=== PATIENT | female | born 1955 | race Caucasian/White ===

== ENCOUNTER 2018-05-24 12:25 | Day surgery (SDC) | payer MEDICARE, MEDICAID ==
[~2018-05-24] VITALS: Ht 157.5 cm; Wt 46.6 kg
[~2018-05-24 12:25] MED LIST: BUPIVACAINE/PF-EPI 0.5% 1:200K ONE; FUROSEMIDE 20 MG/2 ML ONE; NEOMY/POLYMYXIN B GU IRR. 1 ML IRRIG ONE
[2018-05-24] MEDS ORDERED: LACTATED RINGERS 1,000 ML IV SCH ×2 (13:07→18:32)
[2018-05-24 13:16] VITALS: BP 112/78
[2018-05-24] MEDS ORDERED: LIDOCAINE-MPF 1%, 2ML INFIL ONE (13:30)
[2018-05-24] MEDS ORDERED: CLON1TAB11 PO (13:36)
[2018-05-24] MEDS ORDERED: GABA300C10 PO (13:36)
[2018-05-24] MEDS ORDERED: OMEGA 3 PO (13:36)
[2018-05-24] MEDS ORDERED: ALEN70TA5 PO (13:36)
[2018-05-24] MEDS ORDERED: RANI150C PO (13:36)
[2018-05-24] MEDS ORDERED: [UNRECOGNIZED DRUG - OTHER] INH (13:36)
[2018-05-24] MEDS ORDERED: MELO15TA24 PO (13:36)
[2018-05-24] MEDS ORDERED: VITAMIN D PO (13:36)
[2018-05-24] MEDS ORDERED: TIZA2CAP PO (13:36)
[2018-05-24] MEDS ORDERED: TIOT18CA INH (13:36)
[2018-05-24] MEDS ORDERED: FLUT1DIS3 INH (13:36)
[2018-05-24] MEDS ORDERED: ALBU8.5H8 INH (13:36)
[2018-05-24] MEDS ORDERED: TOPI50TA8 PO (13:36)
[2018-05-24] MEDS ORDERED: DIVA-61 PO (13:36)
[2018-05-24] MEDS ORDERED: ATOR20TA9 PO (13:36)
[2018-05-24] MEDS ORDERED: VITAMIN B12 PO (13:36)
[2018-05-24] MEDS ORDERED: NAPR220C2 PO (13:36)
[2018-05-24] MEDS ORDERED: MIDAZOLAM 1 MG/ML, 2ML ONE (15:39)
[2018-05-24] MEDS ORDERED: FENTANYL PF 250 MCG/5ML ONE (15:39)
[2018-05-24] MEDS ORDERED: SUCCINYLCHOLINE 20 MG/ML, 10ML ONE (15:54)
[2018-05-24] MEDS ORDERED: ONDANSETRON 2MG/ML, 2ML ONE (15:54)
[2018-05-24] MEDS ORDERED: DEXAMETHASONE 4 MG/ML, 1ML ONE (15:54)
[2018-05-24] MEDS ORDERED: CEFAZOLIN 1,000 MG ONE (15:54)
[2018-05-24] MEDS ORDERED: ROCURONIUM 10MG/ML,5ML ONE (15:54)
[2018-05-24] MEDS ORDERED: PROPOFOL 10 MG/ML, 20ML ONE (15:54)
[2018-05-24] MEDS ORDERED: ALBUTEROL SULFATE 2.5 MG/3 ML NPPB PRN (16:30)
[2018-05-24] MEDS ORDERED: MEPERIDINE/PF 25MG/0.5ML IVPush PRN (16:30)
[2018-05-24] MEDS ORDERED: LABETALOL 5MG/ML, 20ML IV PRN (16:30)
[2018-05-24] MEDS ORDERED: OXYcodone 5 MG/5 ML ORAL.SOL UDC PO PRN (16:30)
[2018-05-24] MEDS ORDERED: PROMETHAZINE 25 MG/ML, 1ML IV PRN (16:30)
[2018-05-24] MEDS ORDERED: METOCLOPRAMIDE 5 MG/ML, 2ML IV PRN (16:30)
[2018-05-24] MEDS ORDERED: ONDANSETRON 2MG/ML, 2ML IVPush PRN (16:30)
[2018-05-24] MEDS ORDERED: KETOROLAC 30 MG/1 ML IV PRN ×2 (16:30→18:30)
[2018-05-24] MEDS ORDERED: hydrALAzine 20 MG/ML, 1ML IV PRN (16:30)
[2018-05-24] MEDS ORDERED: HYDROmorphone 2 MG/ML, 1ML ONE (17:09)
[2018-05-24] MEDS ORDERED: FENTANYL PF 100 MCG/2ML ONE (17:09)
[2018-05-24] MEDS: FENTANYL PF 100 MCG/2ML IV PRN ×2 (17:12→17:19)
[2018-05-24] MEDS: HYDROmorphone 1 MG/ML, 1ML IV PRN ×2 (17:13→17:30)
[2018-05-24] MEDS ORDERED: ALBUTEROL SULFATE 2.5 MG/3 ML NPPB SCH (18:30)
[2018-05-24] MEDS ORDERED: OXYcodone/APAP 5/325MG TABLET PO PRN (18:30)
[2018-05-24] MEDS ORDERED: HYDROmorphone 1 MG/ML, 1ML IV PRN (18:30)
[2018-05-24] MEDS ORDERED: ONDANSETRON 2MG/ML, 2ML IV PRN (18:30)
[2018-05-24] MEDS ORDERED: IBUPROFEN 600 MG TABLET PO PRN (18:30)
[2018-05-24] MEDS ORDERED: HYDROcodone/APAP 5/325 TABLET PO PRN (19:00)
[2018-05-24] MEDS ORDERED: DIVALPROEX 500 MG TAB.ER.24H PO SCH (21:00)
[2018-05-24] MEDS ORDERED: IPRATROPIUM 0.5 MG/2.5 ML INHA NPPB SCH (21:00)
[2018-05-24] MEDS ORDERED: TIZANIDINE 2MG TABLET PO SCH (21:00)
[2018-05-24] MEDS ORDERED: ATORVASTATIN 20 MG TABLET PO SCH (21:00)
[2018-05-24] MEDS ORDERED: GABAPENTIN 300 MG CAPSULE PO SCH (21:00)
[2018-05-24] MEDS ORDERED: FAMOTIDINE 20 MG TABLET PO SCH (21:00)
[2018-05-24] MEDS ORDERED: BUDESONIDE 0.5 MG/2 ML INHA NPPB SCH (21:00)
[2018-05-25] MEDS ORDERED: TOPIRAMATE 25 MG TABLET PO SCH (09:00)
[2018-05-31] MEDS ORDERED: ALENDRONATE 70 MG TABLET PO SCH (06:30)
== END 2018-05-24 21:35 | disposition home or self-care (01) ==
LOC: OUT 12:25 → 4NOR 18:05 → OUT 21:35
PROVIDERS: ATTEND Obstetrics & Gynecology Female Pelvic Medicine and Reconstructive Surgery
DX: N81.89 Other female genital prolapse (principal); N39.46 Mixed incontinence; G43.909 Migraine, unspecified, not intractable, without status migrainosus; J44.9 Chronic obstructive pulmonary disease, unspecified; F41.9 Anxiety disorder, unspecified; Z90.710 Acquired absence of both cervix and uterus; Z98.890 Other specified postprocedural states; Z88.8 Allergy status to other drugs, medicaments and biological substances; Z91.040 Latex allergy status
CPT/HCPCS: 57265; 57282; 57288; 93005; C1781; J0330; J0690; J1100; J1170; J1940; J2250; J2405; J2704; J3010; J7120; G0378